=== PATIENT | female | born 1995 | race Caucasian/White ===

== ENCOUNTER 2023-06-30 04:55 | Inpatient (IN) | payer OTHER, SELFPAY ==
[2023-06-30] VITALS (140 sets, daily range): BP systolic 101–141; BP diastolic 55–99; PULSE 57–165; RESP 16–18; TEMP 36.6–37; O2SAT 95–100; BMI 33.3
[2023-06-30] MEDS: LACTATED RINGERS 1,000 ML 125 ML IV CONT ×3 (06:23→23:44)
[2023-06-30] MEDS: ceFAZolin 2 GM/D5W 50 ML 2 GM/50 ML BAG IVPB (06:24)
[2023-06-30 06:25] LABS: Basophils Percent Auto 0.4 % (0.2-1.2); Eosinophils Absolute Auto 0.1 K/mm3 (0-0.3); Eosinophils Percent Auto 1.1 % (0-4.4); Hematocrit 36.2 % (37.0-47.0); Hemoglobin 11.4 g/dL (12.0-15.0); Immature Granulocyte Absolute 0.05 K/mm3 (0.00-0.031); Immature Granulocyte Percent A 0.6 % (0-0.5); Lymphocytes Percent Auto 24.8 % (18.3-44.2); Mean Corpuscular HGB Conc 31.5 g/dl (32-36); Mean Corpuscular Hemoglobin 24.8 pg (26-34); Mean Corpuscular Volume 78.7 fl (80-100); Mean Platelet Volume 10.6 fl (7.4-10.4); Monocytes Absolute Auto 0.7 K/mm3 (0.1-0.6); Monocytes Percent Auto 8.6 % (2.6-8.5); Neutrophils Absolute Auto 5.2 K/mm3 (1.3-6.7); Neutrophils Percent Auto 64.5 % (45.5-73.1); Platelet Count Result 170 k/mm3 (150-375); Red Cell Distribution Width 14.5 % (11.5-14.5); White Blood Count 8.1 K/mm3 (4.5-10.0)
[2023-06-30] MEDS: miSOPROStol 25 MCG TABLET 50 MCG PO ×2 (06:31→11:16)
--- NOTE | 2023-06-30 08:01 | WPDOBADMIT ---
Obstetrics - Admit Note Admission Note: record reviewed. No pertinent additions to the history and/or any subsequent changes in the physical findings that are not consistent with the expected course of the were found. Additions to the history and/or subsequent changes in the physical findings follow. IOL, anticipate vaginal delivery
--- NOTE | 2023-06-30 10:58 | WPDANESEPP ---
Anes - Eval Pre Procedure Procedure: Labor epidural Date/Time: 06/30/23 10:58 Surgeon: Lizeth Preop Diagnosis: Abdominal pain with contractions Pre Op Diagnosis: Induction of Labor Patient Data Age: 28 Gender: F Height: 1.63 m Weight: 88 kg Last Vital Signs Temp 97.8 F 06/30/23 07:00 Pulse 83 06/30/23 07:30 Resp 18 06/30/23 07:00 BP 119/81 06/30/23 07:30 O2 Del Method Room Air 06/30/23 05:43 Allergies Allergy/AdvReac Type Severity Reaction Status Date / Time Penicillins Allergy Hives Verified 06/30/23 05:49 Home Medications Medication Instructions Recorded Confirmed Type ferrous sulfate 325 mg (65 mg 325 mg PO DAILY 06/05/23 06/30/23 History iron) tablet prenat.vits,casey,lbm-kbxl-blfmo 1 tablet 06/05/23 History Laboratory Tests 06/30/23 05:13 WBC 8.1 K/mm3 (4.5-10.0) RBC 4.60 M/mm3 (4.2-5.4) Hgb 11.4 L g/dL (12.0-15.0) Hct 36.2 L % (37.0-47.0) MCV 78.7 L fl (80-100) MCH 24.8 L pg (26-34) MCHC 31.5 L g/dl (32-36) RDW 14.5 % (11.5-14.5) Plt Count 170 k/mm3 (150-375) MPV 10.6 H fl (7.4-10.4) Immature Gran % (Auto) 0.6 H % (0-0.5) Neut % (Auto) 64.5 % (45.5-73.1) Lymph % (Auto) 24.8 % (18.3-44.2) Pratt % (Auto) 8.6 H % (2.6-8.5) Eos % (Auto) 1.1 % (0-4.4) Baso % (Auto) 0.4 % (0.2-1.2) Lymph # (Auto) 2.00 K/mm3 (0.9-3.2) Pratt # (Auto) 0.7 H K/mm3 (0.1-0.6) Eos # (Auto) 0.1 K/mm3 (0-0.3) Baso # (Auto) 0.0 K/mm3 (0.0-0.1) Abs Immat Gran (auto) 0.05 H K/mm3 (0.00-0.031) Absolute Neuts (auto) 5.2 K/mm3 (1.3-6.7) Absolute Nucleated RBC 0.0 K/mm3 (0.0-0.012) Nucleated RBC % 0.0 % (0.0-0.2) RPR Pending Blood Type A Positive Antibody Screen Negative : gestational age HCG: positive Patient hx anesthesia problems: none Family hx anesthesia problems: none Results Review: All pre-operative results and documents have been reviewed as part of the pre-operative evaluation. [facility] Past Medical History Medical History Over weight Psoriasis Family History Family History Grandparent Lymphoma Mother Hypoglycemia Social History Social History Smoking status: Never smoker Substance use: never Do You Feel Safe in your Home?: Yes Lack of Transportation: No Lack of Food: Never True Current Housing: I Have Housing Concerned About Future Housing: No Difficulty Paying Gas/Electric Bills: No Difficulty Paying for Meds: No Currently Unemployed: No Education: Associate Degree Difficulty w/ Childcare or Family Care: No Spiritual care concerns: No Exam Day of Procedure 06/30/23 10:58 Patient weight: overweight
[2023-06-30 14:41] LABS: Rapid Plasma Reagin Non-Reactive (NonReactive)
[2023-06-30] MEDS: ceFAZolin 1 GM/NS 50 ML 1 GM/50 ML BAG IVPB ×2 (15:30→23:44)
[2023-06-30] MEDS: OXYTOCIN 30 UNITS/NS 500 ML 30 UNITS/500 ML BAG IV CONT (16:00)
--- NOTE | 2023-06-30 16:23 | PM.OBPNLAB ---
Pain Control Date/time seen: 06/30/23 16:23 SVE 1.5/75/-2 AROM clear, odorless fluid, anticipate vaginal delivery
--- NOTE | 2023-06-30 17:51 | WPDANESEPN ---
Anes - Epidural Procedure Note Date/Time: 06/30/23 17:51 Consent: I have discussed with the patient/family/POA, the placement of an epidural catheter and the use of epidural narcotic/local anesthetic for labor analgesia and/or postoperative pain management, including associated potential risks, benefits, complications and side effects. I have discussed alternative methods of labor analgesia and/or postoperative pain management. The patient/family/POA, understand(s) and wish(es) to proceed with epidural narcotic/local anesthetic for labor analgesia and/or postoperative pain management. Time-Out: A pre-procedural Time-Out was completed immediately before starting the procedure and confirmed: Patient Identification, Site, Procedure, Patient Position and the Availability of Requisite Equipment. Clinical Indications: Labor pain Epidural Insertion Note Patient position: sitting Skin prep: chlorhexidine and sterile drape Needle: 18g Tuohy-Schliff Catheter: 20g Unstyleted Technique: Loss of resistance. Level of insertion: L4/5 Catheter skin sharda (cm): 10 Length in epidural space (cm): 5 Skin anesthesia: lidocaine 1% Test dose: 1.5% Lidocaine with 1:[id number] Epi, negative for subarachnoid Inj and negative for intravascular Inj Time of test dose: 17:39 Observations: tolerated well Complications: none
[2023-06-30] MEDS: SODIUM CHLORIDE 0.9% IV 300 ML 600 ML I-UTERINE (20:26)
[2023-07-01] VITALS (177 sets, daily range): BP systolic 79–137; BP diastolic 50–96; PULSE 69–164; RESP 16–20; TEMP 36.8–37.4; O2SAT 83–100
--- NOTE | 2023-07-01 07:48 | P.PCNOB_ITS ---
OB - Vaginal Delivery Note Procedure Delivery date: 07/01/23 Induction method: AROM, Per Misoprostol Protocol and Per Pitocin Protocol Delivery monitor: External FHT and External Uterine Route of delivery: Laceration Description: Perineal - 2nd Degree and Labial (right) Delivery repair: vicryl Specimen: No Quantitative Blood Loss (ml): 400 Anesthesia type: Local Disposition: Floor [place] Baby Date of : 07/01/23 Time of : 07:27 Weeks of gestation at delivery: 40 Infant gender: Male presentation: vertex position: Right Occiput Anterior Placenta delivery description: Spontaneous Cord Vessel Description: 3 Vessels, Nuchal Cord (x3, tight) and Clamped/Cut score one minute: 8 score five minutes: 9 Narrative: mother and baby skin to skin in stable condition
[2023-07-01] MEDS: OXYTOCIN 30 UNITS/NS 500 ML 30 UNITS/500 ML BAG 125 UNITS IV CONT (08:02)
[2023-07-01] MEDS: ACETAMINOPHEN 325 MG TABLET 650 MG PO ×2 (09:28→15:44)
[2023-07-01] MEDS: BENZOCAINE 20% AER SPR (*SP) 56 GM CAN 1 SPRAY TOPICAL (09:28)
[2023-07-01] MEDS: WITCH HAZEL 40 PADS 1 PAD TOPICAL (09:28)
[2023-07-01] MEDS: MULTIVIT/MIN/PREN/FOL AC/IRON TABLET 1 TAB PO (09:38)
[2023-07-01] MEDS: IBUPROFEN 600 MG TABLET PO (12:40)
[2023-07-02 04:00] VITALS: BP 119/76; PULSE 86; RESP 18; TEMP 37.1; O2SAT 98
[2023-07-02 04:54] LABS: Hemoglobin 8.2 g/dL (12.0-15.0)
[2023-07-02] MEDS: IBUPROFEN 600 MG TABLET PO (08:01)
[2023-07-02] MEDS: DOCUSATE SODIUM 100 MG CAPSULE PO (08:01)
[2023-07-02] MEDS: WITCH HAZEL 40 PADS 1 PAD TOPICAL (08:39)
[2023-07-02] MEDS: MULTIVIT/MIN/PREN/FOL AC/IRON TABLET 1 TAB PO (08:40)
[2023-07-02] MEDS: POLYSACCHARIDE IRON COMPLEX 150 MG CAPSULE PO (08:40)
[2023-07-02 09:00] VITALS: BP 118/82; PULSE 78; RESP 16; TEMP 37; O2SAT 100
--- NOTE | 2023-07-02 09:53 | PM.OBPNVD ---
OB - PN: Subj Subjective Date/time seen: 07/02/23 09:53 Interval history: pp day 1 manage pain breast feeding going well OB - PN: Obj Data Labs 07/02/23 03:52 Labs: Laboratory Results - last 24 hr 07/02/23 03:52 Hgb 8.2 L D Hct 27.0 L OB - PN A/P Plan day: 1 Plan: routine care Time Spent With Patient Time: Total time spent is greater than 50% in coordination of care (as documented) at patient's floor/unit and/or counseling patient: Review of Systems Review of Systems: All systems reviewed & are unremarkable except as noted in HPI and below Exam Const: General: cooperative, healthy appearing and comfortable Resp: Effort & Inspection: normal respiratory effort Cardio: Rate: regular rate GI: Inspection: normal to inspection Psych: Appearance: grossly normal
[2023-07-02] MEDS: IRON SUCROSE COMPLEX 400 MG in SODIUM CHLORIDE 0.9% IV 250 ML 108 MG IVPB (11:00)
[2023-07-02] MEDS: SODIUM CHLORIDE 0.9% IV 500 ML 125 ML (11:00)
--- NOTE | 2023-07-02 12:58 | WPDANLDPN2 ---
Anes-Prog Note L&D Date/Time: 07/02/23 12:58 Comfortable throughout: labor and delivery Neuraxial method: epidural Epidural/Spinal procedure site: tender Neuro status: Neuro function grossly intact. Cardiovascular status: normal Respiratory status: normal Airway patency: baseline Mental status: baseline Post-Op hydration status: normal Vital Signs: Last Vital Signs Temp 98.8 F 07/02/23 04:00 Pulse 86 07/02/23 04:00 Resp 18 07/02/23 04:00 BP 119/76 07/02/23 04:00 Pulse Ox 98 07/02/23 04:00 O2 Del Method Room Air 07/01/23 10:37 Pain score (VAS): 0 Post-procedural complaints: none Patient feedback: Patient satisfied with anesthetic care.
[2023-07-02] MEDS: ACETAMINOPHEN 325 MG TABLET 650 MG PO (14:45)
[2023-07-02 17:15] VITALS: BP 122/78; PULSE 82; RESP 18; TEMP 37; O2SAT 100
[2023-07-02 19:45] VITALS: BP 119/71; PULSE 99; RESP 18; TEMP 36.8
--- NOTE | 2023-07-02 19:45 | PC.NURSE ---
Patient instructed to view the discharge video Mother & Baby Care, The First Two Weeks online. Patient was given the opportunity and encouraged to ask questions. Patient verbalized understanding of information shared and has been given the mother/baby guide for home reference.
--- NOTE | 2023-07-03 03:31 | PM.OBPNVD ---
OB - PN: Subj Subjective Date/time seen: 07/03/23 03:31 Interval history: pp day 2 no complaints breast feeding going well plan d/c home OB - PN: Obj Data Labs 07/02/23 03:52 Labs: Laboratory Results - last 24 hr 07/02/23 03:52 Hgb 8.2 L D Hct 27.0 L OB - PN A/P Plan day: 2 Plan: routine care and discharge home Time Spent With Patient Time: Total time spent is greater than 50% in coordination of care (as documented) at patient's floor/unit and/or counseling patient: Review of Systems Review of Systems: All systems reviewed & are unremarkable except as noted in HPI and below Exam Const: General: cooperative, healthy appearing and comfortable Resp: Effort & Inspection: normal respiratory effort GI: Inspection: normal to inspection Skin: General skin exam: normal color Neuro: General: patient oriented x3
--- NOTE | 2023-07-03 03:33 | PM.OBDSVD ---
DS: Admitting Diagnosis Discharge Date 07/03/23 Admitting Diagnosis iol DS: Discharge Diagnosis Discharge Diagnosis (1) Vaginal delivery: Code(s): O80 - Encounter for full-term uncomplicated delivery Status: Acute (2) Anemia: Code(s): D64.9 - Anemia, unspecified Status: Acute OB - DS: Summary OB Procedures : None OB Procedures Intrapartum: Spontaneous Vag Delivery OB Procedures: : None Peripartum Data Laceration Description: Perineal - 2nd Degree and Labial (right) Time Spent with Patient Time attestation: Total time spent providing and/or coordinating discharge services: DS: Data Data Completed and Pending Labs on day of discharge: Labs from last 24 hours 07/02/23 03:52 Hgb 8.2 L D Hct 27.0 L Discharge Plan Discharge Attending physician on discharge: Enzo Stanley Discharging Clinician: Gia Valencia Patient Disposition: Home, Self-Care Activity: pelvic rest Diet: regular Patient Instructions: Antibiotic Form Stand Alone Forms: General Discharge Information Follow-up/Referrals: Gia Valencia CNM [Certified Nurse Mink Farmer] - 4 Weeks Discharge Medications: New ibuprofen 600 mg Tablet 600 mg PO Q6H PRN (Reason: Cramping) Qty: 30 0RF Auryxia 210 mg iron tablet 210 mg PO BID Qty: 60 0RF Rx Instructions: administer with a meal Continued #2 Tablet 1 tablet PO HS Discontinued ferrous sulfate 325 mg (65 mg iron) Tablet 325 mg PO DAILY Date of admission: 06/30/23 04:55 Primary Care Provider: PHYSICIAN,BISQUE [employer]ILN PLACER Admitting Provider: Enzo Stanley Attending physician on admission: Enzo Stanley Condition: Stable
[2023-07-03 07:55] VITALS: BP 118/73; PULSE 82; RESP 16; TEMP 37.3; O2SAT 100
[2023-07-03] MEDS: POLYSACCHARIDE IRON COMPLEX 150 MG CAPSULE PO (07:58)
[2023-07-03] MEDS: WITCH HAZEL 40 PADS 1 PAD TOPICAL (07:58)
[2023-07-03] MEDS: IBUPROFEN 600 MG TABLET PO (07:58)
[2023-07-03 07:59] VITALS: PULSE 82; RESP 16; O2SAT 100
[2023-07-03] MEDS: DOCUSATE SODIUM 100 MG CAPSULE PO (07:59)
[2023-07-03] MEDS: MULTIVIT/MIN/PREN/FOL AC/IRON TABLET 1 TAB PO (07:59)
[2023-07-04 15:33] VITALS: BP 132/78; PULSE 87; RESP 20; TEMP 36.2; O2SAT 100
== END 2023-07-03 13:16 | disposition home or self-care (01) | DRG 807 ==
LOC: ANHLDR 04:59 → ANHOB2 07-01 10:48
PROVIDERS: Advanced Practice Midwife; Admitting Provider Obstetrics & Gynecology; Visit Provider Obstetrics & Gynecology
DX: O99.824 Streptococcus B carrier state complicating childbirth (principal); Z37.0 Single live birth; Z3A.40 40 weeks gestation of pregnancy; O69.1XX0 Labor and delivery complicated by cord around neck, with compression, not applicable or unspecified; O70.1 Second degree perineal laceration during delivery; O90.81 Anemia of the puerperium; D64.9 Anemia, unspecified
CPT/HCPCS: 36415; 85014; 85018; 85025; 86592; 86850; 86900; 86901; A9270; J0690; J1756; J2590; J2795; J7030; J7040; J7050; J7120

== ENCOUNTER → 2023-08-30 15:15 | Outpatient (CLI) | payer OTHER, SELFPAY ==
--- NOTE | ~2023-08-30 | XR_ITS ---
Thoracic spine: Clinical Indication: Back pain AP and lateral views were performed. No fracture is seen. There is normal alignment of the vertebrae. The intervertebral disc spaces appe ar normal. Paravertebral soft tissues appear normal. Impression: No significant abnormalities noted. Reviewed, dictated and finalized at [facility]. ER ROBBER Impression: No significant abnormalities noted.
== END ==
PROVIDERS: PCP Chiropractor; Visit Provider Chiropractor
DX: M99.02 Segmental and somatic dysfunction of thoracic region (principal)
CPT/HCPCS: 72070